=== PATIENT | male | born 1965 | race Caucasian/White ===

== ENCOUNTER 2019-01-27 14:19 | Day surgery (SDC) | payer OTHER ==
[2019-01-27] MEDS ORDERED: LIDOCAINE 4% SOLUTION 50 ML BTL (15:49)
[2019-01-27] MEDS ORDERED: FENTAnyl 50 MCG/ML VIAL (17:51)
[2019-01-27] MEDS ORDERED: MIDAZOLAM 1 MG/ML 2 ML INJ ×2 (17:51)
== END 2019-01-27 17:20 | disposition home or self-care (01) ==
LOC: GIL 14:19
DX: R19.5 Other fecal abnormalities (principal); D12.5 Benign neoplasm of sigmoid colon; K64.1 Second degree hemorrhoids
CPT/HCPCS: 43239; 88305; 88313